=== PATIENT | female | born 1940 | race Caucasian/White ===

== ENCOUNTER 2019-04-14 07:32 | Day surgery (SDC) | payer MEDICARE, MEDICAID ==
[~2019-04-14] VITALS: Ht 157.5 cm; Wt 83.7 kg
[2019-04-14] MEDS ORDERED: normal saline 1,000 ML IV SCH (08:20)
[2019-04-14] MEDS ORDERED: diphenhydrAMINE 25mg capsule PO PRN (08:20)
[2019-04-14] MEDS ORDERED: LIDOcaine 1% (10mg/ml)w/preservative injection 20ml MDV ONE (08:59)
[2019-04-14] MEDS ORDERED: iohexol 350 MG/ML 50ML vial IV ONE (08:59)
[2019-04-14] MEDS ORDERED: iohexol 350MG/ML 100ml bottle IV ONE ×2 (08:59→10:15)
[2019-04-14] MEDS ORDERED: midazolam 2 mg/2 ml injection ONE ×3 (08:59→10:38)
[2019-04-14] MEDS ORDERED: fentaNYL/PF 50MCG/1 ML 2ML syringe ONE (08:59)
[2019-04-14 09:23] LABS: BASOPHILS # (AUTO) 0.1 X10'3 (0-0.2); EOSINOPHILS # (AUTO) 0.3 X10'3 (0-0.9); EOSINOPHILS % (AUTO) 3.3 % (0-6); HEMATOCRIT 41.7 % (35.0-45.0); HEMOGLOBIN 14.2 g/dl (12.0-16.0); LYMPHOCYTES # (AUTO) 1.2 X10'3 (1.1-4.8); LYMPHOCYTES % (AUTO) 14.1 % (21-51); MEAN CORPUSCULAR HEMOGLOBIN 31.1 PG (27.0-31.0); MEAN CORPUSCULAR HGB CONC 34.1 g/dL (33.0-36.5); MEAN CORPUSCULAR VOLUME 91.4 FL (78-98); MEAN PLATELET VOLUME 7.4 FL (7.4-10.4); MONOCYTES # (AUTO) 0.8 X10'3 (0-0.9); MONOCYTES % (AUTO) 9.1 % (2-12); NEUTROPHILS % (AUTO) 72.5 % (42-75); PLATELET COUNT 412 X10'3 (140-440); RED BLOOD COUNT 4.56 X10'6 (4.20-5.60); RED CELL DISTRIBUTION WIDTH 12.3 % (11.5-14.5); WHITE BLOOD COUNT 8.3 X10'3 (4.5-11.0)
[2019-04-14 09:26] LABS: ALBUMIN 4.2 G/DL (3.4-5.0); ANION GAP 11 (8-16); BLOOD UREA NITROGEN 20 MG/DL (7-18); BUN/CREATININE RATIO 18.3 (6.6-38.0); CALCIUM 10.2 MG/DL (8.5-10.1); CHLORIDE 104 MMOL/L (99-107); CREATININE 1.09 MG/DL (0.40-0.90); GLUCOSE 109 MG/DL (70-104); MAGNESIUM 1.9 MG/DL (1.5-2.4); POTASSIUM 4.1 MMOL/L (3.5-5.1); SODIUM 141 MMOL/L (135-145); TOTAL CARBON DIOXIDE 25.7 MMOL/L (24-32); eGFR 49 ML/MIN
[2019-04-14] MEDS ORDERED: HYDR25TA4 PO (09:26)
[2019-04-14] MEDS ORDERED: NITR0.4T48 SL (09:26)
[2019-04-14] MEDS ORDERED: BIOTIN PO (09:26)
[2019-04-14] MEDS ORDERED: SPIR25TA5 PO (09:26)
[2019-04-14] MEDS ORDERED: AMLO5TAB PO (09:26)
[2019-04-14] MEDS ORDERED: METO50TA17 PO (09:26)
[2019-04-14] MEDS ORDERED: ASPI-10 (09:26)
[2019-04-14] MEDS ORDERED: ROSU40TA PO (09:26)
[2019-04-14] MEDS ORDERED: WEL625T PO (09:26)
[2019-04-14] MEDS ORDERED: CALCIUM PO (09:26)
[2019-04-14] MEDS ORDERED: OMEG1CAP2 (09:26)
[2019-04-14] MEDS ORDERED: ACET-1008 PO (09:26)
[2019-04-14] MEDS ORDERED: FENO145T38 PO (09:26)
[2019-04-14] MEDS ORDERED: VITA1TAB20 PO (09:26)
--- NOTE | 2019-04-14 09:31 | NUR ---
To heart cath via [facility]
[2019-04-14] MEDS ORDERED: heparin 1,000unit/ml 10ml vial 10 ML ONE ×2 (09:57→10:49)
[2019-04-14] MEDS ORDERED: clopidogrel 300mg tablet ONE (10:36)
--- NOTE | 2019-04-14 10:56 | NUR ---
Back from clinical laboratory director via [facility]
[2019-04-14 11:00] VITALS: BP 122/46
--- NOTE | 2019-04-14 11:02 | NUR ---
Pt awake, sleepy. vss. Right groin with perclose and dressing, cdi. No hematoma or bleeding. Laying flat.
[2019-04-14 11:15] VITALS: BP 111/69
[2019-04-14 11:30] VITALS: BP 135/73
[2019-04-14 11:45] VITALS: BP 128/73
[2019-04-14] MEDS ORDERED: HYDROcodone/acetaminophen 5mg/325mg tablet PO PRN (11:55)
[2019-04-14] MEDS ORDERED: HYDROcodone/acetaminophen 10/325mg tab PO PRN (11:55)
[2019-04-14] MEDS ORDERED: proCHLORperazine 10 MG/2 ml inj IV PRN (11:55)
[2019-04-14] MEDS ORDERED: acetaminophen 325mg tablet PO PRN (11:55)
[2019-04-14] MEDS ORDERED: ondansetron/PF 4mg/2ml inj IV PRN (11:55)
[2019-04-14] MEDS ORDERED: OXAZEpam 15mg capsule PO PRN (11:55)
== END 2019-04-14 14:30 | disposition home or self-care (01) ==
LOC: SSTAY O 07:32
PROVIDERS: ATTEND Internal Medicine Cardiovascular Disease
DX: R94.39 Abnormal result of other cardiovascular function study (principal); I25.10 Atherosclerotic heart disease of native coronary artery without angina pectoris; I25.2 Old myocardial infarction; I10 Essential (primary) hypertension; E78.5 Hyperlipidemia, unspecified; M81.0 Age-related osteoporosis without current pathological fracture; E78.00 Pure hypercholesterolemia, unspecified; Z87.891 Personal history of nicotine dependence; R25.8 Other abnormal involuntary movements; Z79.82 Long term (current) use of aspirin; Z79.899 Other long term (current) drug therapy
CPT/HCPCS: 36415; 80048; 83735; 85025; 85610; 93005; 93458; 99152; 99153; C1725; C1769; C1874; C1894; C9600; J1644; J2001; J2250; J3010; J7030; Q0163; Q9967; A4620; A6258; C1760; C9607

== ENCOUNTER 2021-04-06 11:30 | Emergency (ER) | payer MEDICARE, MEDICAID ==
[~2021-04-06] VITALS: Ht 157.5 cm; Wt 74.9 kg
[~2021-04-06 11:30] MED LIST: ACET-1008 PO; AMLO5TAB PO; ASPI-10; BIOTIN PO; CALCIUM PO; FENO145T38 PO; HYDR25TA4 PO; METO50TA17 PO; NITR0.4T48 SL; OMEG1CAP2; ROSU40TA PO; SPIR25TA5 PO; VITA1TAB20 PO; WEL625T PO
[2021-04-06 11:41] VITALS: BP 141/71
[2021-04-06 12:52] LABS: BASOPHILS # (AUTO) 0.1 X10'3 (0-0.2); BASOPHILS % (AUTO) 0.7 % (0-1); EOSINOPHILS # (AUTO) 0.1 X10'3 (0-0.9); EOSINOPHILS % (AUTO) 1.1 % (0-6); HEMATOCRIT 40.6 % (35.0-45.0); HEMOGLOBIN 14.1 g/dl (12.0-16.0); LYMPHOCYTES # (AUTO) 0.9 X10'3 (1.1-4.8); LYMPHOCYTES % (AUTO) 11.3 % (21-51); MEAN CORPUSCULAR HEMOGLOBIN 31.9 PG (27.0-31.0); MEAN CORPUSCULAR HGB CONC 34.8 g/dL (33.0-36.5); MEAN CORPUSCULAR VOLUME 91.7 FL (78-98); MEAN PLATELET VOLUME 7.9 FL (7.4-10.4); MONOCYTES # (AUTO) 1.2 X10'3 (0-0.9); MONOCYTES % (AUTO) 14.3 % (2-12); NEUTROPHILS # (AUTO) 5.9 X10'3 (1.8-7.7); NEUTROPHILS % (AUTO) 72.6 % (42-75); PLATELET COUNT 412 X10'3 (140-440); RED BLOOD COUNT 4.42 X10'6 (4.20-5.60); RED CELL DISTRIBUTION WIDTH 12.2 % (11.5-14.5); WHITE BLOOD COUNT 8.1 X10'3 (4.5-11.0)
[2021-04-06 13:00] LABS: ALBUMIN 3.5 G/DL (3.4-5.0); ANION GAP 13 (8-16); BLOOD UREA NITROGEN 14 MG/DL (7-18); BUN/CREATININE RATIO 11.9 (6.6-38.0); CALCIUM 9.8 MG/DL (8.5-10.1); CHLORIDE 102 MMOL/L (99-107); CREATININE 1.18 MG/DL (0.40-0.90); GLUCOSE 110 MG/DL (70-104); POTASSIUM 3.9 MMOL/L (3.5-5.1); SODIUM 138 MMOL/L (135-145); eGFR 44 ML/MIN
[2021-04-06] MEDS ORDERED: AMOX-117 PO (13:19)
[2021-04-06] MEDS ORDERED: ONDA4TAB12 PO (13:19)
== END 2021-04-06 13:35 | disposition home or self-care (01) ==
LOC: ER 11:31
DX: R60.0 Localized edema (principal); R21 Rash and other nonspecific skin eruption; R11.0 Nausea; R50.9 Fever, unspecified; R53.83 Other fatigue; R19.7 Diarrhea, unspecified; I10 Essential (primary) hypertension; E78.5 Hyperlipidemia, unspecified; I25.2 Old myocardial infarction; Z79.899 Other long term (current) drug therapy
CPT/HCPCS: 36415; 80048; 85025; 99283

== ENCOUNTER 2024-12-18 08:41 | Emergency (ER) | payer MEDICARE, MEDICAID ==
[~2024-12-18] VITALS: Ht 157.5 cm; Wt 73.6 kg
[~2024-12-18 08:41] MED LIST changes: -ACET-1008 PO; +ACET-2006 PO; -ASPI-10; -BIOTIN PO; -CALCIUM PO; +CHOL125C7 PO; +CLOP75TA34 PO; +DIPH-964 PO; +EZET10TA48 PO; +HYDR12.55 PO; -HYDR25TA4 PO; +KEN0.1O TOP; +METF-900 PO; +NASAL SPRAY NS; -OMEG1CAP2; -ROSU40TA PO; +ROSU40TA89 PO; -VITA1TAB20 PO; -WEL625T PO
--- NOTE | 2024-12-18 08:49 | Physician Documentation ---
History of Present Illness ~ Chief Complaint: Chest Pain Stated Complaint: CP Time Seen by MD: 08:49 Primary Medical Doctor: MARIEL Source: patient, family Mode of Arrival: POV Exam Limitations: no limitations HPI Chief Complaint: Right chest pain Caveat: None Independent Historians: History of Present Illness: Patient is an 84-year-old woman brought in by her for sharp right-sided chest pain under her right breast. Pain began at 4:00 a.m.. It woke her from sleep. Patient had a brief episode her period of diaphoresis at resolved. No shortness a breath. No fever, no cough. No history of trauma. Pain was severe and sharp and worse with movement or touch. Pain radiates to the right upper arm and into the breast. Review of systems: All systems were reviewed and are negative except for what is indicated in the history of present illness. Past Medical History: Severe multivessel CAD, HTN, HLD, type 2 diabetes Past Surgical History: CABG x3 Social History: , no tobacco use, no alcohol use, no drug use Medications: Reviewed as documented Nursing Notes Allergies: Reviewed as documented in Nursing Notes Medication Reconciliation Allergies: Coded Allergies: doxycycline (Verified Allergy, Unknown, 06/06/24) Scheduled Amlodipine Besylate (Amlodipine Besylate), 1 TABLET PO DAILY, (Reported) Cholecalciferol (Vitamin D3) (D3-5000), 5,000 UNIT PO DAILY, (Reported) Clopidogrel Bisulfate (Clopidogrel), 1 PO DAILY, (Reported) Ezetimibe (Ezetimibe), 1 TAB PO DAILY, (Reported) Fenofibrate Nanocrystallized* (Tricor*), 145 MG PO DAILY, (Reported) Hydrochlorothiazide (Hydrochlorothiazide), 1 TAB PO DAILY, (Reported) Metformin Hcl* (Metformin ER*), 1 TAB PO DAILY, (Reported) Metoprolol Tartrate* (Metoprolol Tartrate*), 1 TAB PO Q12H, (Reported) Rosuvastatin Calcium (Rosuvastatin Calcium), 1 TAB PO HS, (Reported) Spironolactone (Spironolactone), 25 MG PO BID, (Reported) Scheduled PRN Acetaminophen (Acetaminophen Extra Strength), 1-2 TAB PO Q4HPRN PRN for pain, (Reported) Diphenhydramine HCl (Sleep Aid), 2 CAP PO HS PRN for sleep, (Reported) Nitroglycerin (Nitroglycerin), 0.4 MG SL for Chest pain Q5min PRNx3-call MD, (Reported) Triamcinolone Acetonide 0.1% Crm* (Kenalog 0.1% Crm*), 1 APPLIC TOP Q12H PRN for itching, (Reported) [Nasal Jeremiah], 1 SPR NS DAILY PRN for nasal congestion, (Reported) Review of Systems All Other Systems at this time: Reviewed and Negative ROS Patient denies any other acute symptoms other than above. All other systems are negative Physical Exam Vital Signs: RN Vital Signs have been reviewed: Yes, Temperature: 97.2, Heart Rate: 80, Respiratory Rate: 15, BP: 126/81, Pulse Oximetry: 99, Weight: 73.600 Pulse Oximetry Reflects: adequate oxygenation Physical Exam General Appearance: Mild distress, morbidly obese, chronically ill-appearing HEENT: Normal OP, moist oral mucosa, PERRL, EOMI Neck: supple, normal ROM, trachea midline Pulmonary: No respiratory distress, CTA, BS equal Cardiac: RRR, no murmur, rub or gallop, GI: nondistended, soft, nontender, normal bowel sounds, no guarding, no rebound Chest: Patient has tenderness under the right breast over the ribs and the costal margin. The skin and breasts appear normal without any signs of infection or erythema. No crepitus. Pain is reproducible with palpation and movement. Extremities: normal ROM, no swelling, non-tender Skin: intact, dry, warm, no rashes Neuro: AAOx3, speech is clear, no focal motor weakness Psych: normal affect, good eye contact, no apparent hallucination, normal speech Progress Results/Orders Results/Orders Orders - AYESHA HARRISON MD Chest,Single View (12/18/24 08:49) Saline Lock (12/18/24 08:49) Monitor (12/18/24 08:49) Oxygen (12/18/24 08:49) Completed Orders - AYESHA HARRISON MD Cbc/Diff (12/18/24 08:49) MG (12/18/24 08:49) Electrocardiogram (12/18/24 08:49) PBNP (12/18/24 08:49) Chest,Single View (12/18/24 08:49) Aspirin 81mg Chew Tablet (Aspirin 81mg C (12/18/24 08:50) Pt Inr (12/18/24 08:49) PTT (12/18/24 08:49) Hs Troponin I W Calculations (12/18/24 08:49) CMP (12/18/24 08:49) Hydrocodone/Apap 5/325mg Tab ([place] 5/32 (12/18/24 10:30) Medications Received in ER Medications (Trade) Dose Ordered Sig/Gurpreet Route PRN Reason Start Time Stop Time Status Last Admin Dose Admin (aspirin 81MG chew tablet) 324 mg ONCE ONCE PO 12/18/24 08:50 12/18/24 08:51 DC 12/18/24 08:56 324 MG ([place] 5/325mg tablet) 1 tab ONCE ONCE PO 12/18/24 10:30 12/18/24 10:31 DC 12/18/24 10:56 1 TAB Vital Signs 12/18/24 12/18/24 12/18/24 12/18/24 08:44 08:57 09:24 10:56 Temp 97.2 Pulse 80 75 Resp 15 27 16 B/P (MAP) 126/81 125/68 (87) Pulse Ox 99 99 12/18/24 12/18/24 10:56 10:59 Temp 98.4 Pulse 71 Resp 16 16 B/P (MAP) 119/45 Pulse Ox 98 Laboratory Tests Test 12/18/24 09:19 White Blood Count 6.7 Red Blood Count 4.21 Hemoglobin 13.6 Hematocrit 38.6 Mean Corpuscular Volume 91.8 Mean Corpuscular Hemoglobin 32.3 H Mean Corpuscular Hemoglobin Concent 35.2 Red Cell Distribution Width 13.4 Platelet Count 365 Mean Platelet Volume 7.3 L Neutrophils (%) (Auto) 82.0 H Lymphocytes (%) (Auto) 10.6 L Monocytes (%) (Auto) 6.0 Eosinophils (%) (Auto) 0.9 Basophils (%) (Auto) 0.5 Neutrophils # (Auto) 5.5 Lymphocytes # (Auto) 0.7 L Monocytes # (Auto) 0.4 Eosinophils # (Auto) 0.1 Basophils # (Auto) 0.0 CBC Comment Prothrombin Time 10.3 INR International Normalized Ratio 1.0 Activated Partial Thromboplast Time 24 Coagulation Comments Sodium Level 136 Potassium Level 3.8 Chloride Level 99 Carbon Dioxide Level 26.4 Anion Gap 11 Blood Urea Nitrogen 12 Creatinine 0.90 Estimated GFR/1.73 m2 60 BUN/Creatinine Ratio 13.3 Glucose Level 123 H Calcium Level 9.9 Magnesium Level 1.6 Total Bilirubin 0.4 Aspartate Amino Transf (AST/SGOT) 21 Alanine Aminotransferase (ALT/SGPT) 15 Alkaline Phosphatase 34 L Troponin I High Sensitivity 10 Pro-B-Type Natriuretic Peptide 904 H Total Protein 7.5 Albumin 3.8 Globulin 3.7 Albumin/Globulin Ratio 1.0 L Chemistry Comments Medical Decision Making Findings Differential diagnosis includes but is not limited to: Acute coronary syndrome, costochondritis, musculoskeletal pain, pulmonary embolus, pneumonia EKG independent interpretation: Performed at 8:46 a.m.. Normal sinus rhythm, heart rate 79, normal axis, nonspecific ST segments, Q-wave in three and V1 and V2 Chest x-ray, single view, indication: Chest pain Independent interpretation: Lungs are clear, elevated left hemidiaphragm, normal mediastinum, sternal wires, normal cardiac silhouette. No acute cardiopulmonary process Laboratory data independent interpretation: CBC: Remarkable CMP: Unremarkable 1st troponin: 10 Pro BNP: 904 Emergency department course/medical decision-making: Patient presents with a right-sided chest pain. Patient's pain clearly appears to be musculoskeletal. She isn't having any other signs or symptoms currently of acute coronary syndrome. I do not suspect acute coronary syndrome. Although I do not know the cause of her right chest wall pain. Her pain is clearly reproducible with movement and palpation. No infection identified. No evidence of pneumonia. I do not suspect a pulmonary embolus. Patient isn't requiring any oxygen. Test results and treatment plan reviewed with the patient. She was given [place] 5 mg here for her pain. Patient is stable for discharge. She is instructed to follow up with her communication skills instructor. She is instructed to return if she has any new or recurrent symptoms. Patient is stable for discharge. Departure Time of Disposition: 10:52 Disposition: 01 HOME / SELF CARE / HOMELESS Impression: Primary Impression: Acute chest pain Condition: Improved Discharge Instructions: Chest Wall Pain, Nonspecific Chest Pain, Adult Additional Instructions: FOLLOW UP WITH THE PAY STATION COLLECTOR. THE CAUSE FOR YOUR CHEST PAIN IS UNKNOWN. CONTINUE ALL OF YOUR MEDICATIONS. TAKE TYLENOL FOR PAIN. RETURN TO THE ER IF YOUR SYMPTOMS WORSEN. Education Educated: Patient, Family Educated regarding: diagnosis, treatment, need for follow up Signature Scribe Signature: NO SCRIBE Attestation: No scribe AYESHA HARRISON MD Dec 18, 2024 08:49
--- NOTE | 2024-12-18 08:51 | ELECTROCARDIOGRAPH REPORT ---
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 NANCY Dooley Measurements Intervals [place] Rate: 79 P: -85 DE: 185 QRS: 69 QRSD: 100 T: -25 QT: 432 QTc: 496 Interpretive Statements Sinus or ectopic atrial rhythm Probable inferior infarct, age indeterminate Probable anteroseptal infarct, old Electronically Signed On 12-18-2024 17:26:[address] NANCY Dooley Please click the below link to view image of tracing.
--- NOTE | 2024-12-18 09:15 | RADIOLOGY REPORT ---
EXAM: DI CHEST,SINGLE VIEW Indication: CP Technique: Single frontal view of the chest was obtained Comparison: DI CHEST,SINGLE VIEW on DOS: 06/12/24, DI CHEST,SINGLE VIEW on DOS: 06/11/24, DI CHEST,SING LE VIEW on DOS: 06/10/24, DI CHEST,SINGLE VIEW on DOS: 06/09/24, DI CHEST,SINGLE VIEW on DOS: 06/08/24 FINDINGS: Lines and Tubes: None Lungs: No focal consolidation. Pleura: No effusion. No pneumothorax. Cardiomediastinal contours: Unremarkable. Atherosclerotic vascular calcifications of the thoracic ao rta are noted. Bones: No acute osseous abnormality. IMPRESSION: No acute cardiopulmonary disease.
[2024-12-18 09:28] LABS: MEAN PLATELET VOLUME 7.3 FL (7.4-10.4); RED CELL DISTRIBUTION WIDTH 13.4 % (11.5-14.5)
[2024-12-18 09:45] LABS: APTT 24 SECONDS (22-32); INR 1.0 INR
[2024-12-18 09:46] LABS: CREATININE 0.90 MG/DL (0.40-0.90); TOTAL CARBON DIOXIDE 26.4 MMOL/L (24-32); eCRCL 37 ML/MIN; eGFR 60 ML/MIN
[2024-12-18 09:52] LABS: PRO BRAIN NATRIURETIC PEPTIDE 904 PG/ML (0-450)
[2024-12-18] MEDS: HYDROcodone/acetaminophen 5mg/325mg tablet PO ONE (10:56)
[2024-12-18 10:59] VITALS: BP 119/45; PULSE 71; RESP 16; TEMP 98.4; O2SAT 98
== END 2024-12-18 11:02 | disposition home or self-care (01) ==
LOC: ER 08:41
DX: R07.89 Other chest pain (principal); E78.5 Hyperlipidemia, unspecified; I10 Essential (primary) hypertension; I25.10 Atherosclerotic heart disease of native coronary artery without angina pectoris; E11.9 Type 2 diabetes mellitus without complications; Z95.1 Presence of aortocoronary bypass graft; Z88.1 Allergy status to other antibiotic agents; Z79.899 Other long term (current) drug therapy
CPT/HCPCS: 36415; 71045; 80053; 83735; 83880; 84484; 85025; 85610; 85730; 93005; 99285